=== PATIENT | female | born 1985 | race Two or more races ===

== ENCOUNTER 2019-02-08 00:57 | Emergency (ER) | payer MEDICAID ==
[~2019-02-08] VITALS: Ht 165.1 cm; Wt 72.6 kg
[2019-02-08] MEDS ORDERED: MORPHINE SULFATE 2 MG/1 ML DISP.SYRIN IV ONE (01:30)
[2019-02-08] MEDS ORDERED: IV NORMAL SALINE 1000 ML BAG IV ONE ×2 (01:30→02:45)
[2019-02-08] MEDS ORDERED: ONDANSETRON 4 MG/2 ML VIAL IV ONE ×3 (01:30→03:45)
[2019-02-08] MEDS ORDERED: MORPHINE SULFATE 4 MG/1 ML DISP.SYRIN ONE (01:39)
[2019-02-08] MEDS ORDERED: ONDANSETRON 4 MG/2 ML VIAL ONE ×3 (01:39→03:42)
[2019-02-08 01:52] LABS: BASOPHILS % (AUTO) 0.5 % (0.0-2.0); EOSINOPHILS # (AUTO) 0.1 K/uL (0.0-0.7); EOSINOPHILS % (AUTO) 1.1 % (0.0-7.0); HEMATOCRIT 36.2 % (31.2-41.9); HEMOGLOBIN 12.5 g/dL (10.9-14.3); LYMPHOCYTES # (AUTO) 2.5 K/uL (20.0-40.0); LYMPHOCYTES % (AUTO) 30.2 % (20.5-51.5); MEAN CORPUSCULAR HEMOGLOBIN 30.2 uug (24.7-32.8); MEAN CORPUSCULAR HGB CONC 35 g/dL (32.3-35.6); MEAN CORPUSCULAR VOLUME 87.5 fL (75.5-95.3); MONOCYTES # (AUTO) 0.6 K/uL (2.0-10.0); MONOCYTES % (AUTO) 7.6 % (0.0-11.0); NEUTROPHILS # (AUTO) 5.1 K/uL (1.8-8.9); NEUTROPHILS % (AUTO) 60.6 % (38.5-71.5); PLATELET COUNT (AUTO) 271 K/uL (179-408); RED BLOOD CELL COUNT(AUTO) 4.13 MIL/uL (3.63-4.92); WHITE BLOOD COUNT (AUTO) 8.4 K/uL (3.8-11.8)
[2019-02-08 02:00] LABS: CARBON DIOXIDE 30 mmol/L (21-32); CHLORIDE 103 mmol/L (98-107); CREATININE 0.7 mg/dL (0.6-1.3); GLUCOSE 94 mg/dL (74-106); POTASSIUM 3.3 mmol/L (3.5-5.1); UREA NITROGEN, BLOOD 7 mg/dL (7-18)
[2019-02-08 02:06] LABS: ALANINE AMINOTRANSFERASE 24 U/L (14-59); ALKALINE PHOSPHATASE 103 U/L (50-136); ASPARTATE AMINOTRANSFERASE 27 U/L (15-37); BILIRUBIN,DIRECT 0.1 mg/dL (0.0-0.2); BILIRUBIN,TOTAL 0.3 mg/dL (0.2-1.0); TOTAL PROTEIN, SERUM 7.2 g/dL (6.4-8.2)
[2019-02-08] MEDS ORDERED: KETOROLAC TROMETHAMINE 30 MG INJ ONE (02:06)
[2019-02-08] MEDS ORDERED: HYDROMORPHONE 1 MG/1 ML DISP.SYRIN IV ONE ×2 (02:15→02:45)
[2019-02-08] MEDS ORDERED: KETOROLAC TROMETHAMINE 30 MG INJ IVP ONE (02:15)
[2019-02-08] MEDS ORDERED: HYDROMORPHONE 1 MG/1 ML DISP.SYRIN ONE ×2 (02:17→02:45)
--- NOTE | 2019-02-08 03:00 | NUR ---
patient stated that she has diarrhea when using the restroom in room
[2019-02-08 03:20] LABS: *BLOOD, URINE NEGATIVE (NEGATIVE); *CLARITY,URINE CLEAR (CLEAR); *COLOR,URINE YELLOW (YELLOW); *KETONES,URINE NEGATIVE (NEGATIVE); *UROBILINOGEN,URINE 0.2 E.U./dl (NORMAL); LEUKOCYTE ESTERASE ,URINE NEGATIVE (NEGATIVE); NITRITE, URINE NEGATIVE (NEGATIVE); PH,URINE 5.5 (5.0-8.0); UGLUCOSE NEGATIVE (NEGATIVE)
[2019-02-08 03:24] LABS: *BILIRUBIN,URIN 1+ (NEGATIVE)
[2019-02-08 03:28] LABS: RBC,URINE 0-3 /HPF (0-3); WBC,URINE 0-3 /HPF (0-3)
[2019-02-08 03:29] LABS: BACTERIA,URINE FEW /HPF (NONE SEEN); SQUAMOUS EPITHELIAL CELL,UR FEW /HPF (NONE SEEN)
[2019-02-08] MEDS ORDERED: DIPHENOXYLATE HCL/ATROP SULF TABLET PO ONE (03:30)
[2019-02-08] MEDS ORDERED: DIPHENOXYLATE HCL/ATROP SULF TABLET ONE (03:36)
--- NOTE | 2019-02-08 03:45 | NUR ---
patient taken down to CT with rag grader
--- NOTE | 2019-02-08 03:56 | NUR ---
patient brought back from CT
[2019-02-08] MEDS ORDERED: diphenhydrAMINE 50 MG/1 ML VIAL IV ONE (05:00)
[2019-02-08] MEDS ORDERED: METOCLOPRAMIDE HCL 10 MG/2 ML VIAL IV ONE (05:00)
[2019-02-08] MEDS ORDERED: METOCLOPRAMIDE HCL 10 MG/2 ML VIAL ONE (05:03)
[2019-02-08] MEDS ORDERED: diphenhydrAMINE 50 MG/1 ML VIAL ONE (05:03)
--- NOTE | 2019-02-08 05:15 | NUR ---
Patient discharged to home in stable conditon. Written and verbal after care instructions given. Patient verbalizes understanding of instructions. patient self ambulatory with steady gait. Patient consented she will be picked up by her friend who was the one who initially dropped her off. Patient took personal belongings and exit care package with her. Patient denies any pain or discomfort prior to discharge.
[2019-02-08 05:38] VITALS: BP 111/71
== END 2019-02-08 05:19 | disposition home or self-care (01) ==
LOC: ER 01:04
DX: K52.9 Noninfective gastroenteritis and colitis, unspecified (principal); Z90.49 Acquired absence of other specified parts of digestive tract
CPT/HCPCS: 36415; 74176; 76856; 80048; 80076; 81000; 81001; 84702; 85025; 96361 ×2; 96374; 96375; 96376; 99284; J1170 ×2; J1200; J1885; J2270; J2405 ×3; J2765; A4663; J7030

== ENCOUNTER 2019-04-13 09:20 | Emergency (ER) | payer MEDICAID ==
[~2019-04-13] VITALS: Ht 165.1 cm; Wt 72.6 kg
[2019-04-13] MEDS ORDERED: HYDROMORPHONE 1 MG/1 ML DISP.SYRIN IV ONE (09:45)
[2019-04-13] MEDS ORDERED: IV NORMAL SALINE 1000 ML BAG IV ONE ×2 (09:45→11:00)
[2019-04-13] MEDS ORDERED: ONDANSETRON 4 MG/2 ML VIAL IV ONE (09:45)
[2019-04-13] MEDS ORDERED: HYDROMORPHONE 2 MG/1 ML DISP.SYRIN ONE (09:52)
[2019-04-13] MEDS ORDERED: ONDANSETRON 4 MG/2 ML VIAL ONE (09:52)
[2019-04-13] MEDS ORDERED: METOCLOPRAMIDE HCL 10 MG/2 ML VIAL ONE (10:14)
[2019-04-13] MEDS ORDERED: METOCLOPRAMIDE HCL 10 MG/2 ML VIAL IV ONE (10:15)
[2019-04-13 10:27] LABS: BASOPHILS % (AUTO) 0.4 % (0.0-2.0); EOSINOPHILS % (AUTO) 0.1 % (0.0-7.0); HEMATOCRIT 42.5 % (31.2-41.9); HEMOGLOBIN 14.4 g/dL (10.9-14.3); LYMPHOCYTES # (AUTO) 2.8 K/uL (20.0-40.0); LYMPHOCYTES % (AUTO) 24.9 % (20.5-51.5); MEAN CORPUSCULAR HGB CONC 34 g/dL (32.3-35.6); MEAN CORPUSCULAR VOLUME 88.6 fL (75.5-95.3); MONOCYTES # (AUTO) 0.6 K/uL (2.0-10.0); MONOCYTES % (AUTO) 5.5 % (0.0-11.0); NEUTROPHILS # (AUTO) 7.8 K/uL (1.8-8.9); NEUTROPHILS % (AUTO) 69.1 % (38.5-71.5); PLATELET COUNT (AUTO) 310 K/uL (179-408); WHITE BLOOD COUNT (AUTO) 11.2 K/uL (3.8-11.8)
[2019-04-13 10:28] LABS: *BILIRUBIN,URIN NEGATIVE (NEGATIVE); *BLOOD, URINE NEGATIVE (NEGATIVE); *COLOR,URINE DARK YELLOW (YELLOW); *KETONES,URINE 1+ (NEGATIVE); *UROBILINOGEN,URINE 0.2 E.U./dl (NORMAL); LEUKOCYTE ESTERASE ,URINE NEGATIVE (NEGATIVE); NITRITE, URINE NEGATIVE (NEGATIVE); PH,URINE 6.5 (5.0-8.0); UGLUCOSE NEGATIVE (NEGATIVE)
[2019-04-13 10:35] LABS: BILIRUBIN,DIRECT 0.1 mg/dL (0.0-0.2); BILIRUBIN,TOTAL 0.4 mg/dL (0.2-1.0); CREATININE 0.8 mg/dL (0.6-1.3); POTASSIUM 3.7 mmol/L (3.5-5.1); TOTAL PROTEIN, SERUM 7.9 g/dL (6.4-8.2)
--- NOTE | 2019-04-13 10:36 | NUR ---
Patient is resting comfortably on gurney with eyes closed, no dry heaving heard or seen@this time. Monitored closely, labs pending
[2019-04-13 10:59] LABS: *CLARITY,URINE SLIGHTLY CLOUDY (CLEAR)
[2019-04-13 11:01] LABS: BACTERIA,URINE MODERATE /HPF (NONE SEEN); RBC,URINE 0-3 /HPF (0-3); SQUAMOUS EPITHELIAL CELL,UR MODERATE /HPF (NONE SEEN); WBC,URINE 0-3 /HPF (0-3)
--- NOTE | 2019-04-13 11:28 | NUR ---
IV removed. Catheter intact and site benign. Pressure and 4x4 gauze applied to site. No bleeding noted. Patient discharged to home in stable conditon. Written and verbal after care instructions given to patient. Patient verbalizes understanding of instructions.
[2019-04-13 11:29] VITALS: BP 134/81
== END 2019-04-13 11:30 | disposition home or self-care (01) ==
LOC: ER 09:20
DX: K52.9 Noninfective gastroenteritis and colitis, unspecified (principal); Z90.49 Acquired absence of other specified parts of digestive tract
CPT/HCPCS: 36415; 74176; 80048; 80076; 81000; 81001; 83605; 83690; 84702; 85025; 87040; 87086; 96361; 96374; 96375; 99284; J1170; J2405; J2765; A4663; J7030

== ENCOUNTER 2023-02-19 15:41 | Emergency (ER) | payer BC, MEDICAID ==
[~2023-02-19] VITALS: Ht 165.1 cm; Wt 95.3 kg
[2023-02-19] MEDS ORDERED: HYDROMORPHONE 1 MG/1 ML DISP.SYRIN IV ONE ×2 (17:00→18:30)
[2023-02-19] MEDS ORDERED: ONDANSETRON 4 MG/2 ML VIAL IV ONE (17:00)
[2023-02-19] MEDS ORDERED: HYDROMORPHONE 1 MG/1 ML DISP.SYRIN ONE ×2 (17:08→18:25)
[2023-02-19] MEDS ORDERED: ONDANSETRON 4 MG/2 ML VIAL ONE (17:08)
[2023-02-19 17:32] LABS: BASOPHILS % (AUTO) 0.2 % (0.0-2.0); HEMATOCRIT 46.1 % (31.2-41.9); HEMOGLOBIN 15.7 g/dL (10.9-14.3); LYMPHOCYTES # (AUTO) 1.2 K/uL (0.8-4.8); LYMPHOCYTES % (AUTO) 7.9 % (20.5-51.5); MEAN CORPUSCULAR HEMOGLOBIN 29.8 uug (24.7-32.8); MEAN CORPUSCULAR HGB CONC 34 g/dL (32.3-35.6); MEAN CORPUSCULAR VOLUME 87.6 fL (75.5-95.3); MONOCYTES # (AUTO) 0.3 K/uL (0.1-1.30); MONOCYTES % (AUTO) 1.8 % (0.0-11.0); NEUTROPHILS # (AUTO) 13.9 K/uL (1.8-8.9); NEUTROPHILS % (AUTO) 90.1 % (38.5-71.5); PLATELET COUNT (AUTO) 297 K/uL (179-408); RED BLOOD CELL COUNT(AUTO) 5.27 MIL/uL (3.63-4.92); RED CELL DISTRIBUTION WIDTH 13.6 % (12.3-17.7); WHITE BLOOD COUNT (AUTO) 15.5 K/uL (3.8-11.8)
[2023-02-19 17:33] LABS: DIFFERENTIAL COMMENT 1
[2023-02-19 17:34] LABS: *BILIRUBIN,URIN NEGATIVE (NEGATIVE); *BLOOD, URINE NEGATIVE (NEGATIVE); *CLARITY,URINE CLEAR (CLEAR); *COLOR,URINE YELLOW (YELLOW); *KETONES,URINE 2+ (NEGATIVE); *PROTEIN,URINE 2+ (NEGATIVE); *UROBILINOGEN,URINE 0.2 E.U./dl (NORMAL); LEUKOCYTE ESTERASE ,URINE NEGATIVE (NEGATIVE); NITRITE, URINE NEGATIVE (NEGATIVE); PH,URINE >=9.0 (5.0-8.0); UGLUCOSE NEGATIVE (NEGATIVE)
[2023-02-19 17:39] LABS: *URINE HCG, QUAL NEGATIVE (NEGATIVE)
[2023-02-19] MEDS ORDERED: LORAZEPAM 2 MG/1 ML VIAL ONE (17:45)
[2023-02-19] MEDS ORDERED: LORAZEPAM 2 MG/1 ML VIAL IV ONE (17:45)
[2023-02-19 18:07] LABS: ALBUMIN 4.4 g/dL (3.4-5.0); BILIRUBIN,DIRECT 0.2 mg/dL (0.0-0.2); BILIRUBIN,TOTAL 0.5 mg/dL (0.2-1.0); CALCIUM 9.4 mg/dL (8.5-10.1); CREATININE 0.9 mg/dL (0.6-1.3); POTASSIUM 3.6 mmol/L (3.5-5.1); TOTAL PROTEIN, SERUM 8.6 g/dL (6.4-8.2)
[2023-02-19 18:15] LABS: BACTERIA,URINE MODERATE /HPF (NONE SEEN); RBC,URINE 0-3 /HPF (0-3); SQUAMOUS EPITHELIAL CELL,UR MANY /HPF (NONE SEEN); WBC,URINE NONE SEEN /HPF (0-3)
[2023-02-19 18:16] LABS: MUCUS,URINE MODERATE /LPF (0-FEW)
[2023-02-19] MEDS ORDERED: METOCLOPRAMIDE HCL 10 MG/2 ML VIAL ONE (18:24)
[2023-02-19] MEDS ORDERED: diphenhydrAMINE 50 MG/1 ML VIAL ONE (18:24)
[2023-02-19] MEDS ORDERED: METOCLOPRAMIDE HCL 10 MG/2 ML VIAL IV ONE (18:30)
[2023-02-19] MEDS ORDERED: diphenhydrAMINE 50 MG/1 ML VIAL IV ONE (18:30)
[2023-02-19] MEDS ORDERED: PROCHLORPERAZINE EDISYLATE 10 MG/2 ML VIAL ONE ×2 (19:54→22:14)
[2023-02-19] MEDS ORDERED: HYDROMORPHONE 2 MG/1 ML DISP.SYRIN ONE (19:54)
[2023-02-19] MEDS ORDERED: PROCHLORPERAZINE EDISYLATE 10 MG/2 ML VIAL IM ONE ×2 (20:00→22:15)
[2023-02-19] MEDS ORDERED: HYDROMORPHONE 1 MG/1 ML DISP.SYRIN IM ONE (20:00)
[2023-02-19] MEDS ORDERED: PROC25SU29 RC (22:15)
[2023-02-19] MEDS ORDERED: PROC-11 PO (22:15)
[2023-02-19 22:46] VITALS: BP 99/74; TEMP 98.7; O2SAT 98
== END 2023-02-19 22:30 | disposition home or self-care (01) ==
LOC: ER 15:41
DX: F15.23 Other stimulant dependence with withdrawal (principal); Z90.49 Acquired absence of other specified parts of digestive tract; Z79.899 Other long term (current) drug therapy
CPT/HCPCS: 99285; 74176; 96374; 96375; 80076; 80048; 81001; 84703; 83690; 85025; 36415; 96376; 96372 ×3; J1200; J2060; J2765; J2405; J0780 ×2; J1170 ×3; A4663

== ENCOUNTER 2023-03-15 02:39 | Emergency (ER) | payer BC ==
[~2023-03-15] VITALS: Ht 170.2 cm; Wt 86.2 kg
[~2023-03-15 02:39] MED LIST: PROC-11 PO; PROC25SU29 RC
[2023-03-15] MEDS ORDERED: LORA0.5T48 PO (02:58)
[2023-03-15 03:57] LABS: BASOPHILS % (AUTO) 0.2 % (0.0-2.0); HEMATOCRIT 43.6 % (31.2-41.9); HEMOGLOBIN 15.2 g/dL (10.9-14.3); LYMPHOCYTES # (AUTO) 1.3 K/uL (0.8-4.8); LYMPHOCYTES % (AUTO) 9.7 % (20.5-51.5); MEAN CORPUSCULAR HEMOGLOBIN 29.9 uug (24.7-32.8); MEAN CORPUSCULAR HGB CONC 35 g/dL (32.3-35.6); MEAN CORPUSCULAR VOLUME 86.1 fL (75.5-95.3); MONOCYTES # (AUTO) 0.4 K/uL (0.1-1.30); MONOCYTES % (AUTO) 3.4 % (0.0-11.0); NEUTROPHILS # (AUTO) 11.4 K/uL (1.8-8.9); NEUTROPHILS % (AUTO) 86.7 % (38.5-71.5); PLATELET COUNT (AUTO) 291 K/uL (179-408); RED BLOOD CELL COUNT(AUTO) 5.07 MIL/uL (3.63-4.92); WHITE BLOOD COUNT (AUTO) 13.2 K/uL (3.8-11.8)
[2023-03-15 04:00] LABS: DIFFERENTIAL COMMENT 1
[2023-03-15] MEDS ORDERED: FAMOTIDINE. 20 MG/2 ML VIAL IV ONE ×2 (04:00→04:09)
[2023-03-15] MEDS ORDERED: PROCHLORPERAZINE EDISYLATE 10 MG/2 ML VIAL IV ONE (04:00)
[2023-03-15] MEDS ORDERED: KETOROLAC TROMETHAMINE 30 MG INJ IVP ONE (04:00)
[2023-03-15] MEDS ORDERED: IV NORMAL SALINE 1000 ML BAG IV ONE (04:00)
[2023-03-15 04:04] LABS: CALCIUM 9.9 mg/dL (8.5-10.1); CREATININE 0.8 mg/dL (0.6-1.3); POTASSIUM 3.7 mmol/L (3.5-5.1)
[2023-03-15] MEDS ORDERED: KETOROLAC TROMETHAMINE 30 MG INJ ONE (04:08)
[2023-03-15] MEDS ORDERED: PROCHLORPERAZINE EDISYLATE 10 MG/2 ML VIAL ONE (04:09)
[2023-03-15 04:10] LABS: ALBUMIN 3.9 g/dL (3.4-5.0); BILIRUBIN,DIRECT 0.1 mg/dL (0.0-0.2); BILIRUBIN,TOTAL 0.6 mg/dL (0.2-1.0); TOTAL PROTEIN, SERUM 8.1 g/dL (6.4-8.2)
[2023-03-15 04:11] LABS: *BILIRUBIN,URIN NEGATIVE (NEGATIVE); *BLOOD, URINE NEGATIVE (NEGATIVE); *CLARITY,URINE CLEAR (CLEAR); *COLOR,URINE YELLOW (YELLOW); *KETONES,URINE 2+ (NEGATIVE); *PROTEIN,URINE 1+ (NEGATIVE); *UROBILINOGEN,URINE 0.2 E.U./dl (NORMAL); LEUKOCYTE ESTERASE ,URINE NEGATIVE (NEGATIVE); NITRITE, URINE NEGATIVE (NEGATIVE); UGLUCOSE NEGATIVE (NEGATIVE)
[2023-03-15 04:33] LABS: *AMPHETAMINE, URINE NEGATIVE (NEGATIVE); *BARBITURATE, URINE NEGATIVE (NEGATIVE); *BENZODIAZEPINE, URINE NEGATIVE (NEGATIVE); *CANNABINOID, URINE POSITIVE (NEGATIVE); *COCCAINE, URINE NEGATIVE (NEGATIVE); *OPIATE, URINE POSITIVE (NEGATIVE); *PHENCYCLIDINE SCREEN,URINE NEGATIVE (NEGATIVE); FENTANYL, URINE NEGATIVE (NEGATIVE)
[2023-03-15 04:45] LABS: *URINE HCG, QUAL NEGATIVE (NEGATIVE)
[2023-03-15] MEDS ORDERED: HYDROMORPHONE 1 MG/1 ML DISP.SYRIN ONE (04:53)
[2023-03-15] MEDS ORDERED: HYDROMORPHONE 1 MG/1 ML DISP.SYRIN IV ONE (05:00)
[2023-03-15] MEDS ORDERED: METOCLOPRAMIDE HCL 10 MG/2 ML VIAL IV ONE (05:30)
[2023-03-15] MEDS ORDERED: METOCLOPRAMIDE HCL 10 MG/2 ML VIAL ONE (05:38)
[2023-03-15] MEDS ORDERED: MORPHINE SULFATE 4 MG/1 ML DISP.SYRIN IV ONE (09:00)
[2023-03-15] MEDS ORDERED: MORPHINE SULFATE 4 MG/1 ML DISP.SYRIN ONE (09:01)
[2023-03-15] MEDS ORDERED: ONDA4TAB11 PO (10:06)
[2023-03-15 10:09] VITALS: BP 127/80; TEMP 98; O2SAT 99
== END 2023-03-15 10:20 | disposition home or self-care (01) ==
LOC: ER 02:45
DX: R10.9 Unspecified abdominal pain (principal); F15.23 Other stimulant dependence with withdrawal; Z90.49 Acquired absence of other specified parts of digestive tract; Z79.899 Other long term (current) drug therapy
CPT/HCPCS: 99285; 74176; 96375; 96374; 96361; 80076; 80048; 84703; 83690; 85025; 36415; 83605; 80307; 81003; J3490; J1885; J2765; J0780; J1170; J2270; J7040; A4663